=== PATIENT | male | born 1995 | race Hispanic/Latino ===

== ENCOUNTER → 2017-02-10 | Outpatient (CLI) | payer OTHER, SELFPAY ==
[~2017-02-10] MED LIST: METHACHOLINE KIT (J7674) INH ONE
--- NOTE | 2017-02-10 08:35 | PFTRPT ---
Site: [facility], [address] [place], [place], [address] ID: [id number] Name: WINNIE ZHOU Doctor: Livier Parson Tech: Enma CHO RRT Age: 21 Sex: Male Race: <Unspecified> Height: 70.50 Inches Weight: 228.00 Lbs BSA: 2.22 Diagnosis: R06.02 puffs of albuterol for post bronchodilator. Pre-Bronch Post-Bronch Pred Actual %Pred Actual %Chng SPIROMETRY FVC (L) 5.68 4.97 87 5.20 4 FEV1 (L) 4.73 4.27 90 4.12 -3 FEV1/FVC (%) 84 86 102 79 -7 FEF 25% (L/sec) 9.13 9.08 99 7.76 -14 FEF 50% (L/sec) 6.33 5.33 84 5.31 FEF 75% (L/sec) 2.47 2.32 93 2.06 -11 FEF 25-75% (L/sec) 4.97 4.56 91 4.13 -9 FEF Max (L/sec) 10.22 10.86 106 8.66 -20 FIVC (L) 4.23 4.37 3 FIF 50% (L/sec) 5.74 6.75 117 6.24 -7 FIF Max (L/sec) 6.78 6.47 -4
== END ==
LOC: M CARPUL 07:18
PROVIDERS: ATTEND Nurse Practitioner Adult Health
DX: R06.02 Shortness of breath (principal)